=== PATIENT | male | born 1990 | race Caucasian/White ===

== ENCOUNTER 2017-02-01 09:13 | Emergency (ER) | payer OTHER ==
[2017-02-01 09:26] VITALS: BP 117/76; PULSE 97; TEMP 99.2; BMI 33.3
[2017-02-01] MEDS ORDERED: IBUPROFEN 600 MG TABLET (FP) PO ONE ×2 (09:45→09:50)
[2017-02-01] MEDS ORDERED: ALBUTEROL SO4 2.5/IPRATROPIUM 0.5 INH SOL 3 ML VIAL.NEB. NEB ONE ×2 (09:45→09:50)
--- NOTE | 2017-02-01 09:52 | PDOC ---
History of Present Illness - General Chief Complaint: Cold Symptoms Stated Complaint: CHEST PAIN, COUGH, FEVER Time Seen by Provider: 02/01/17 09:37 History Source: Patient Exam Limitations: No Limitations - History of Present Illness Initial Comments: 02/01/17 09:50 26 yr male history of asthma states sneezing, nasal congestion cough fever for 2 days. no abd pain or chest pain . Past History - Past Medical History Allergies/Adverse Reactions: Allergies Allergy/AdvReac Type Severity Reaction Status Date / Time No Known Allergies Allergy Verified 02/01/17 09:23 Home Medications: Ambulatory Orders Albuterol Sulfate Inhaler - [Ventolin HFA Inhaler -] 1 - 2 inh PO Q4H #1 inhaler 02/01/17 Fluticasone Prop 0.05% Nasal [Flonase -] 1 - 2 spray NS DAILY #1 spray.pump Prednisone [Deltasone -] 20 mg PO BID #6 tablet 02/01/17 Asthma: Yes - Psycho/Social/Smoking Cessation Hx Anxiety: No Suicidal Ideation: No Smoking History: Never smoked Have you smoked in the past 12 months: No Number of Cigarettes Smoked Daily: 4 Information on smoking cessation initiated: No 'Breaking Loose' booklet given: 04/25/14 Hx Alcohol Use: No Drug/Substance Use Hx: No Substance Use Type: None Respiratory Specific PMHX - Complaint Specific PMHX Bronchitis: Yes Review of Systems - Review of Systems Able to Perform ROS?: Yes Is the patient limited Greek proficient: No Constitutional: Yes: Symptoms Reported HEENTM: Yes: Symptoms Reported Respiratory: Yes: Symptoms reported *Physical Exam - Vital Signs Last Vital Signs Temp Pulse Resp BP Pulse Ox 99.2 F 97 H 18 117/76 100 02/01/17 09:23 02/01/17 09:23 02/01/17 09:23 02/01/17 09:23 02/01/17 09:23 - Physical Exam General Appearance: Yes: Nourished, Appropriately Dressed HEENT: positive: EOMI, LIZZIE, TMs Normal, Pharynx Normal, Nasal Congestion Neck: positive: Supple. negative: Tender, Lymphadenopathy (R), Lymphadenopathy (L) Respiratory/Chest: positive: Normal Breath Sounds, Wheezing (mild expiratory ). 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, Fully Oriented, Alert, Normal Mood/ Affect, Normal Response, Motor Strength 5/5 Medical Decision Making - Medical Decision Making 02/01/17 09:51 cc: cough sore throat, body aches, fever nasal congestion for 2 days no shortness of breath stable vitals will give duoneb, r/o flu motrin *DC/Admit/Observation/Transfer Diagnosis at time of Disposition: Asthmatic bronchitis Qualifiers: Asthma severity: mild intermittent Asthma complication type: uncomplicated Qualified Code(s): J45.20 - Mild intermittent asthma, uncomplicated - Discharge Dispostion Disposition: HOME Condition at time of disposition: Good - Prescriptions Prescriptions: Prednisone [Deltasone -] 20 mg PO BID #6 tablet Fluticasone Prop 0.05% Nasal [Flonase -] 1 - 2 spray NS DAILY #1 spray.pump Albuterol Sulfate Inhaler - [Ventolin HFA Inhaler -] 1 - 2 inh PO Q4H #1 inhaler - Referrals Referrals: [facility] [Provider Group] - Patient Instructions Additional Instructions: drink pleanty of fluids to stay hydrated take the medciation as prescribed you can also take tylenol (for fever or pain) and claritin or zyrtec as needed (over the counter for allergies ) follow with [facility] for follow up
--- NOTE | 2017-02-04 11:54 | EKG ---
Test Reason : Blood Pressure : / mmHG Vent. Rate : 097 BPM Atrial Rate : 097 BPM P-R Int : 142 ms QRS Dur : 086 ms QT Int : 316 ms P-R-T Axes : 033 043 035 degrees QTc Int : 401 ms NORMAL SINUS RHYTHM NONSPECIFIC ST ABNORMALITY NO PREVIOUS ECGS AVAILABLE Confirmed by FERMIN COX MD ([id number]) on 02/04/2017 11:53:42 AM Referred By: Confirmed By:FERMIN COX MD
== END 2017-02-01 10:49 | disposition home or self-care (01) ==
LOC: JERFT 09:13
PROC: 3E0F7GC Introduction of Other Therapeutic Substance into Respiratory Tract, Via Natural or Artificial Opening (ICD-10-PCS; principal; 2017-02-01)
DX: J45.20 Mild intermittent asthma, uncomplicated (principal)
CPT/HCPCS: 87804; 93005; 93010; 94640; 99281-25